=== PATIENT | female | born 1995 | race African-American/Black ===

== ENCOUNTER 2025-03-14 21:30 | Emergency (ER) | payer OTHER ==
[~2025-03-14] VITALS: Ht 170.2 cm; Wt 77.3 kg
[2025-03-14 22:08] VITALS: TEMP 98.2
[2025-03-14 22:38] LABS: APPEARANCE,URINE CLEAR (CLEAR); GLUCOSE, URINE (UA) NEGATIVE (NEGATIVE); LEUKOCYTE ESTERASE ,URINE SMALL (NEGATIVE); NITRATE,URINE NEGATIVE (NEGATIVE); OCCULT BLOOD,URINE LARGE (NEGATIVE); SPECIFIC GRAVITIY, URINE 1.012 (1.003-1.030)
[2025-03-14 22:51] LABS: PLATELET COUNT (AUTO) 373 K/uL (150-450); RED BLOOD CELL COUNT(AUTO) 4.35 MIL/uL (4.00-5.20); RED CELL DISTRIBUTION WIDTH 15.4 % (11.5-14.5); WHITE BLOOD COUNT (AUTO) 12.6 K/uL (4.5-11.0)
[2025-03-14 23:01] LABS: CALCIUM, TOTAL 8.9 mg/dL (8.8-10.5); CREATININE 0.78 mg/dL (0.60-1.30); GLOMERULAR FILTR. RATE CALC > 60 mL/min (>60); GLUCOSE,RANDOM 95 mg/dL (70-110); UREA NITROGEN, BLOOD 7 mg/dL (7-18)
[2025-03-14 23:06] LABS: SODIUM SERUM 136 mmol/L (136-145)
[2025-03-14 23:13] LABS: SQUAMOUS EPITHELIAL CELL,UR Rare /LPF (None Seen)
[2025-03-15] MEDS: KETOROLAC TROMETHAMINE 30 MG/ML VIAL IVP ONE (01:40)
[2025-03-15] MEDS: ONDANSETRON HCL 4 MG/2 ML VIAL IVP ONE (01:40)
[2025-03-15] MEDS: SODIUM CHLORIDE 0.9% 1,000 ML IV ONE (01:41)
[2025-03-15] MEDS ORDERED: CEPH-558 PO (03:01)
[2025-03-15] MEDS: CefTRIAXone 1 GM/DEXTROSE 50 ML IV ONE (03:06)
[2025-03-15 04:54] VITALS: BP 118/75; PULSE 60; RESP 18; O2SAT 98
== END 2025-03-15 05:31 | disposition home or self-care (01) ==
LOC: EMS 21:30
DX: N39.0 Urinary tract infection, site not specified (principal); F17.210 Nicotine dependence, cigarettes, uncomplicated; Z91.018 Allergy to other foods
CPT/HCPCS: 99285; 80048; 81001; 84703; 85025; 36415; 74176; 96365; 96375; 96361; J1885; J0696; J2405; J7030